=== PATIENT | male | born 1980 | race American Indian/Alaskan Native ===

== ENCOUNTER 2019-02-01 08:58 | Outpatient (CLI) | payer BC ==
[2019-02-01 09:53] LABS: Blood Urea Nitrogen 11 mg/dL (9-20)
--- NOTE | 2019-02-01 15:01 | Cat Scan Report ---
CT CHEST, ABDOMEN, AND PELVIS WITH IV CONTRAST INDICATION / CLINICAL INFORMATION: e C90.00: Multiple myeloma not having achieved remission. TECHNIQUE: Axial CT images were obtained through the chest, abdomen, and pelvis after 100 cc of Omnipaque [address] scans at this location are performed using CT dose reduction for ALARA by means of automated exposure control. COMPARISON: None available. FINDINGS: HEART: No significant abnormality. THORACIC AORTA: No significant abnormality. MEDIASTINUM and DAISY: No significant abnormality. LUNGS: No acute air space or interstitial disease. PLEURA: No significant pleural effusion. No pneumothorax. ADDITIONAL CHEST FINDINGS: None. LIVER: No significant abnormality. GALLBLADDER: No significant abnormality. BILE DUCTS: No significant abnormality. PANCREAS: No significant abnormality. SPLEEN: No significant abnormality. ADRENALS: No significant abnormality. RIGHT KIDNEY and URETER: No significant abnormality. LEFT KIDNEY and URETER: No significant abnormality. STOMACH and SMALL BOWEL: No significant abnormality. COLON: No significant abnormality. APPENDIX: No significant abnormality. PERITONEUM: No free fluid. No free air. No fluid collection. LYMPH NODES: No significant adenopathy. AORTA and ARTERIES: No significant abnormality. IVC and VEINS: No significant abnormality. URINARY BLADDER: No significant abnormality. REPRODUCTIVE ORGANS: No significant abnormality. ADDITIONAL FINDINGS: None. SKELETAL SYSTEM: There are lytic areas in T10, T12, and L5 as well as T3. There is also a lytic area in the center of the C7 vertebral body. Some of these have an appearance suggesting hemangiomas but a ppear more lytic. IMPRESSION: 1. There are several lytic lesions in the spine described above. No fractures are seen. MRI of the sp ine is recommended to further evaluate these lesions. No mass lesions are seen. There is no adenopathy. Signer Name: Mat Burrell MD Signed: 02/01/2019 2:56 PM Workstation Name: [id number]
== END 2019-02-01 08:59 | disposition home or self-care (01) ==
LOC: CT 08:58
PROVIDERS: ATTEND Internal Medicine Hematology & Oncology
DX: C90.00 Multiple myeloma not having achieved remission (principal)
CPT/HCPCS: 36415; 71260; 74177; 82565; 84520; Q9967